=== PATIENT | female | born 1980 | race Caucasian/White ===

== ENCOUNTER 2019-07-28 05:46 | Emergency (ER) | payer OTHER, SELFPAY ==
--- NOTE | 2019-07-28 06:18 | EDPHYS ---
Physician Documentation [facility] Name: Navya Grant Age: 39 yrs Sex: Female : 1980 Arrival Date: 07/28/2019 Time: 05:48 Bed 5 Private MD: JORGE Physician Hal Hutson HPI: 07/27 06:05 This 39 yrs old Female presents to ER via Ambulatory with complaints of adolfo Nausea. 06:05 The patient presents to the emergency department with nausea, diarrhea, that is adolfo intermittent. Onset: The symptoms/episode began/occurred 2 day(s) ago. Possible causes: unknown. The symptoms are aggravated by nothing. The symptoms are alleviated by nothing. Associated signs and symptoms: The patient has no apparent associated signs or symptoms. Severity of symptoms: At their worst the symptoms were mild in the emergency department the symptoms are unchanged. The patient has not experienced similar symptoms in the past. 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 - Social history:: Smoking status: . - Family history:: not pertinent. ROS: 06:05 Constitutional: Negative for fever, chills, and weight loss, Eyes: Negative for injury, adolfo pain, redness, and discharge, ENT: Negative for injury, pain, and discharge, Neck: Negative for injury, pain, and swelling, Cardiovascular: Negative for chest pain, palpitations, and edema, Respiratory: Negative for shortness of breath, cough, wheezing, and pleuritic chest pain, Back: Negative for injury and pain, : Negative for injury, bleeding, discharge, and swelling, MS/Extremity: Negative for injury and deformity, Skin: Negative for injury, rash, and discoloration, Neuro: Negative for headache, weakness, numbness, tingling, and seizure, Psych: Negative for depression, anxiety, suicide ideation, homicidal ideation, and hallucinations, Allergy/Immunology: Negative for hives, rash, and allergies, Endocrine: Negative for neck swelling, polydipsia, polyuria, polyphagia, and marked weight changes, Hematologic/Lymphatic: Negative for swollen nodes, abnormal bleeding, and unusual bruising. 06:05 Abdomen/GI: Positive for nausea, diarrhea. Exam: 06:05 Constitutional: This is a well developed, well nourished patient who is awake, alert, adolfo and in no acute distress. Head/Face: Normocephalic, atraumatic. Eyes: Pupils equal round and reactive to light, extra-ocular motions intact. Lids and lashes normal. Conjunctiva and sclera are non-icteric and not injected. Cornea within normal limits. Periorbital areas with no swelling, redness, or edema. ENT: Nares patent. No nasal discharge, no septal abnormalities noted. Tympanic membranes are normal and external auditory canals are clear. Oropharynx with no redness, swelling, or masses, exudates, or evidence of obstruction, uvula midline. Mucous membranes moist. Neck: Trachea midline, no thyromegaly or masses palpated, and no cervical lymphadenopathy. Supple, full range of motion without nuchal rigidity, or vertebral point tenderness. No Meningismus. Chest/axilla: Normal chest wall appearance and motion. Nontender with no deformity. No lesions are appreciated. Cardiovascular: Regular rate and rhythm with a normal S1 and S2. No gallops, murmurs, or rubs. Normal PMI, no JVD. No pulse deficits. Respiratory: Lungs have equal breath sounds bilaterally, clear to auscultation and percussion. No rales, rhonchi or wheezes noted. No increased work of breathing, no retractions or nasal flaring. Back: No spinal tenderness. No costovertebral tenderness. Full range of motion. Skin: Warm, dry with normal turgor. Normal color with no rashes, no lesions, and no evidence of cellulitis. MS/ Extremity: Pulses equal, no cyanosis. Neurovascular intact. Full, normal range of motion. Neuro: Awake and alert, GCS 15, oriented to person, place, time, and situation. Cranial nerves II-XII grossly intact. Motor strength 5/5 in all extremities. Sensory grossly intact. Cerebellar exam normal. Normal gait. Psych: Awake, alert, with orientation to person, place and time. Behavior, mood, and affect are within normal limits. 06:05 Abdomen/GI: Inspection: abdomen appears normal, Bowel sounds: normal, Palpation: abdomen is soft and non-tender, Liver: no appreciated palpable abnormalities, Hernia: not appreciated. Vital Signs: 05:54 BP 113 / 73; Pulse 74; Resp 18; Temp 97.3; Pulse Ox 98% ; Weight 50.8 kg; Height 5 ft. ea 0 in. (152.40 cm); 06:30 BP 121 / 68; Pulse 70; Resp 18; Pulse Ox 98% on R/A; ea 05:54 Body Mass Index 21.87 (50.80 kg, 152.40 cm) ea MDM: 05:50 Patient medically screened. [facility] 06:11 Data reviewed: vital signs, nurses notes. [facility] 06:11 Differential diagnosis: Nonspecific abd pain, gastritis, viral gastroenteritis, adolfo gastroenteritis. 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 Counseling: I had a detailed discussion with the patient and/or guardian regarding: the historical points, exam findings, and any diagnostic results supporting the discharge/admit diagnosis, the need for outpatient follow up, for definitive care. Medication response: Zofran markedly relieved the patient's nausea. ED course: pt under stress, feeling better, nausea , no vomiting, mild diarrhea, non toxic, will dc home with zofran, no work x 24 hrs, follow up pcp, return to the er if symptoms increase or persist. Administered Medications: 06:15 Drug: Zofran (Ondansetron) 4 mg Route: PO; ea 07:05 Follow up: Response: No adverse reaction ea Disposition: 07/28/19 06:18 Discharged to Home. Impression: Nausea, Diarrhea, unspecified. - Condition is Stable. - Discharge Instructions: Food Choices to Help Relieve Diarrhea, Adult, Diarrhea, Adult, Nausea and Vomiting, Adult, Nausea, Adult, Diarrhea, Adult, [id number]. - Prescriptions for Zofran 4 mg Oral Tablet - take 1 tablet by ORAL route every 12 hours As needed; 14 tablet. - Work release form, Medication Reconciliation Form, Thank You Letter, Antibiotic Education, Prescription Opioid Use form. - Follow up: Private Physician; When: 5 - 6 days; Reason: Recheck today's complaints, Continuance of care, Re-evaluation by your physician. - Problem is new. - Symptoms have improved. Signatures: Dispatcher [employer] EDMS Baker, Spencer, RN Hal Todd MD MD cha Antunez, Elena, RN RN ea Corrections: (The following items were deleted from the chart) 06:12 06:00 IV Saline Lock ordered. reji mendoza : 05:59 Urine Dipstick-Ancillary ordered. reji mendoza 06:00 Labs collected and sent ordered. reji mendoza 07:05 06:18 07/28/2019 06:18 Discharged to Home. Impression: Nausea; Diarrhea, unspecified. ea Condition is Stable. Forms are Medication Reconciliation Form, Thank You Letter, Antibiotic Education, Prescription Opioid Use. Follow up: Private Physician; When: 5 - 6 days; Reason: Recheck today's complaints, Continuance of care, Re-evaluation by your physician. Problem is new. Symptoms have improved. adolfo
--- NOTE | 2019-07-28 06:18 | ER ---
Nurse's Notes [facility] Name: Navya Grant Age: 39 yrs Sex: Female : 1980 Arrival Date: 07/28/2019 Time: 05:48 Bed 5 Private MD: Diagnosis: Nausea;Diarrhea, unspecified Presentation: 07/27 05:55 Chief complaint: Patient states: Reports nausea that started this AM, states she had ea diarrhea yesterday afternoon. Pt reports lower abdominal pain. Coronavirus screen: Proceed with normal triage. Ebola Screen: No symptoms or risks identified at this time. Initial Sepsis Screen: Does the patient meet any 2 criteria? No. Patient's initial sepsis screen is negative. Does the patient have a suspected source of infection? No. Patient's initial sepsis screen is negative. Risk Assessment: Do you want to hurt yourself or someone else? Patient reports no desire to harm self or others. Onset of symptoms was July 28, 2019. 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 - Social history:: Smoking status: . - Family history:: not pertinent. Screenin:55 Abuse screen: Denies threats or abuse. Nutritional screening: No deficits noted. ea Tuberculosis screening: No symptoms or risk factors identified. Fall Risk None identified. Assessment: 05:57 General: Appears uncomfortable, Behavior is appropriate for age. Pain: Complains of ea pain in suprapubic area. Neuro: Level of Consciousness is awake, alert, obeys commands, Oriented to person, place, time, situation. Cardiovascular: Patient's skin is warm and dry. Respiratory: Airway is patent Respiratory effort is even, unlabored, Respiratory pattern is regular, symmetrical. GI: Abdomen is non-distended, Reports diarrhea, nausea. Derm: Skin is dry, Skin is normal, Skin temperature is warm. Vital Signs: 05:54 BP 113 / 73; Pulse 74; Resp 18; Temp 97.3; Pulse Ox 98% ; Weight 50.8 kg; Height 5 ft. ea 0 in. (152.40 cm); 06:30 BP 121 / 68; Pulse 70; Resp 18; Pulse Ox 98% on R/A; ea 05:54 Body Mass Index 21.87 (50.80 kg, 152.40 cm) reji ED Course: 05:48 Patient arrived in ED. ds1 05:49 Arm band placed on. landon 05:50 Hal Hutson MD is Attending Physician. adolfo 05:56 Triage completed. ea 05:57 Patient has correct armband on for positive identification. Bed in low position. Call ea light in reach. Side rails up X 1. 06:12 Anna Carney, RN is Primary Nurse. ea 07:04 No provider procedures requiring assistance completed. Patient did not have IV access ea during this emergency room visit. Administered Medications: 06:15 Drug: Zofran (Ondansetron) 4 mg Route: PO; ea 07:05 Follow up: Response: No adverse reaction ea Outcome: 06:18 Discharge ordered by . adolfo 07:04 Discharged to home ambulatory. ea 07:04 Condition: stable 07:04 Discharge instructions given to patient, Instructed on discharge instructions, follow up and referral plans. medication usage, Demonstrated understanding of instructions, follow-up care, medications, Prescriptions given X 1. 07:05 Patient left the ED. ea Signatures: Spencer Baker, RN Hal Todd MD MD cha Sanford, Demi ds1 Anna Carney RN RN ea
[2019-07-28] MEDS ORDERED: ONDANSETRON 4 MG (ODT) TAB ONE (06:22)
[2019-07-28 07:22] VITALS: TEMP 97.3; O2SAT 98
[2019-07-28 07:23] VITALS: BP 121/68
== END 2019-07-28 07:05 | disposition home or self-care (01) ==
LOC: ER 05:46
DX: R11.0 Nausea (principal); R19.7 Diarrhea, unspecified
CPT/HCPCS: 99283

== ENCOUNTER 2019-10-27 08:26 | Emergency (ER) | payer SELFPAY ==
[2019-10-27] MEDS ORDERED: NA CHLORIDE 0.9% 1,000 ML ONE (09:13)
[2019-10-27] MEDS ORDERED: FAMOTIDINE 20 MG/2 ML VIAL IV ONE (09:13)
[2019-10-27 09:40] LABS: Absolute Lymphocytes (CBC) 1.5 K/uL (0.7-4.9); Basophils % 0.9 % (0-1.3); Hematocrit 40.2 % (36.0-45.0); Lymphocytes % 32.8 % (15.3-44.8); MPV 9.4 fL (7.6-11.3); RBC Red Blood Cell Count 4.25 M/uL (3.86-4.86)
[2019-10-27 09:48] LABS: BUN Blood Urea Nitrogen 10 mg/dL (7-18); Bicarbonate 29 mmol/L (21-32); Glucose Level 85 mg/dL (74-106); Sodium Level 139 mmol/L (136-145)
--- NOTE | 2019-10-27 10:08 | EDPHYS ---
Physician Documentation [facility] Name: Navya Grant Age: 39 yrs Sex: Female : 1980 Arrival Date: 10/27/2019 Time: 08:28 Bed 17 Private MD: ED Physician Martín Colon HPI: 10/26 09:09 This 39 yrs old Female presents to ER via Ambulatory with complaints of kdr Dizziness, General Weakness, Fatigue. 09:09 The patient has been feeling generally weak and fatigued with some dizziness. She feels kdr she may be dehydrated. She states she has been under a lot of stress and that she has not been taking her anti-dyspepsia medications. She has no focal c/o and does not appear toxic or in any life or limb threatening circumstance at this time. symptoms/episode began/occurred gradually, last week. Severity of symptoms: At their worst the symptoms were mild in the emergency department the symptoms are unchanged. The patient has not experienced similar symptoms in the past. The patient has not recently seen a physician. 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 - Social history:: Smoking status: Patient denies any tobacco usage or history of. ROS: 09:09 Constitutional: Negative for fever, chills, and weight loss, Eyes: Negative for injury, kdr pain, redness, and discharge, Neck: Negative for injury, pain, and swelling, Cardiovascular: Negative for chest pain, palpitations, and edema, Respiratory: Negative for shortness of breath, cough, wheezing, and pleuritic chest pain, Abdomen/GI: Negative for abdominal pain, nausea, vomiting, diarrhea, and constipation, Back: Negative for injury and pain, : Negative for injury, bleeding, discharge, and swelling, MS/Extremity: Negative for injury and deformity, Skin: Negative for injury, rash, and discoloration, Psych: Negative for depression, anxiety, suicide ideation, homicidal ideation, and hallucinations, Allergy/Immunology: Negative for hives, rash, and allergies, Endocrine: Negative for neck swelling, polydipsia, polyuria, polyphagia, and marked weight changes, Hematologic/Lymphatic: Negative for swollen nodes, abnormal bleeding, and unusual bruising. :09 Neuro: Positive for dizziness, weakness. Exam: :09 Constitutional: This is a well developed, well nourished patient who is awake, alert, kdr and in no acute distress. Head/Face: Normocephalic, atraumatic. Eyes: Pupils equal round and reactive to light, extra-ocular motions intact. Lids and lashes normal. Conjunctiva and sclera are non-icteric and not injected. Cornea within normal limits. Periorbital areas with no swelling, redness, or edema. Neck: Trachea midline, no thyromegaly or masses palpated, and no cervical lymphadenopathy. Supple, full range of motion without nuchal rigidity, or vertebral point tenderness. No Meningismus. Chest/axilla: Normal chest wall appearance and motion. Nontender with no deformity. No lesions are appreciated. Cardiovascular: Regular rate and rhythm with a normal S1 and S2. No gallops, murmurs, or rubs. Normal PMI, no JVD. No pulse deficits. Respiratory: Lungs have equal breath sounds bilaterally, clear to auscultation and percussion. No rales, rhonchi or wheezes noted. No increased work of breathing, no retractions or nasal flaring. Abdomen/GI: Soft, non-tender, with normal bowel sounds. No distension or tympany. No guarding or rebound. No evidence of tenderness throughout. Back: No spinal tenderness. No costovertebral tenderness. Full range of motion. Skin: Warm, dry with normal turgor. Normal color with no rashes, no lesions, and no evidence of cellulitis. MS/ Extremity: Pulses equal, no cyanosis. Neurovascular intact. Full, normal range of motion. Neuro: Awake and alert, GCS 15, oriented to person, place, time, and situation. Cranial nerves II-XII grossly intact. Motor strength 5/5 in all extremities. Sensory grossly intact. Cerebellar exam normal. Normal gait. Psych: Awake, alert, with orientation to person, place and time. Behavior, mood, and affect are within normal limits. Appears fatigued and states she has been under a lot of stress Vital Signs: 08:36 BP 133 / 89; Pulse 97; Resp 16; Temp 98.3(TE); Pulse Ox 96% on R/A; Weight 50.8 kg; hb Height 5 ft. (152.40 cm); Pain 0/10; 09:27 BP 119 / 78; Pulse 59; Resp 17; Pulse Ox 100% ; bp 10:10 BP 102 / 76; Pulse 64; Resp 17; Pulse Ox 100% ; bp 08:36 Body Mass Index 21.87 (50.80 kg, 152.40 cm) hb MDM: 10:08 Patient medically screened. kdr 10:11 Data reviewed: vital signs, nurses notes, lab test result(s). Counseling: I had a kdr detailed discussion with the patient and/or guardian regarding: the historical points, exam findings, and any diagnostic results supporting the discharge/admit diagnosis, lab results, the need for outpatient follow up. 10/26 09:01 Order name: CBC with Diff; Complete Time: 10:05 kdr 10/26 09: Order name: Chem 7; Complete Time: 10:05 kdr Administered Medications: 09:25 Drug: NS 0.9% 1000 ml Route: IV; Rate: 1 bolus; Site: right antecubital; bp 10:11 Follow up: IV Status: Completed infusion; IV Intake: 1000ml bp 09:25 Drug: Pepcid 20 mg Route: IVP; Site: right antecubital; bp 10:11 Follow up: Response: No adverse reaction bp Disposition: 10/27/19 10:08 Discharged to Home. Impression: Acute Fatigue, weakness, stress reaction, dyspepsia, gastritis. - Condition is Stable. - Discharge Instructions: Fatigue, Gastroesophageal Reflux Disease, Adult, Vtsu-ga-Buza, Weakness, [id number], Food Choices for Gastroesophageal Reflux Disease, Adult, [id number]. - Prescriptions for Protonix 40 mg Oral Tablet - take 1 tablet by ORAL route once daily; 30 tablet. - Medication Reconciliation Form, Thank You Letter, Work release form form. - Follow up: Private Physician; When: 2 - 3 days; Reason: If symptoms return, Further diagnostic work-up, Recheck today's complaints, Continuance of care, Re-evaluation by your physician. - Problem is new. - Symptoms have improved. Signatures: Dispatcher [employer] EDMartín Pollard MD MD kdr Jihan Parisi RN RN hb Homar Ruiz, RN RN bp Corrections: (The following items were deleted from the chart) 10:22 10:08 10/27/2019 10:08 Discharged to Home. Impression: Acute Fatigue, weakness, stress bp reaction, dyspepsia, gastritis. Condition is Stable. Forms are Medication Reconciliation Form, Thank You Letter, Antibiotic Education, Prescription Opioid Use. Follow up: Private Physician; When: 2 - 3 days; Reason: If symptoms return, Further diagnostic work-up, Recheck today's complaints, Continuance of care, Re-evaluation by your physician. Problem is new. Symptoms have improved. kdr
--- NOTE | 2019-10-27 10:08 | ER ---
Nurse's Notes [facility] Name: Navya Grant Age: 39 yrs Sex: Female : 1980 Arrival Date: 10/27/2019 Time: 08:28 Bed 17 Private MD: Diagnosis: Acute Fatigue, weakness, stress reaction, dyspepsia, gastritis Presentation: 10/26 08:36 Chief complaint: Upper abdominal pain, nausea, generalized weakness, dry throat/mouth, hb and malaise x 2-3 days. Reports she is "under a lot of stress lately, I am so tired I can't sleep.". Coronavirus screen: At this time, the client does not indicate any symptoms associated with coronavirus-19. Ebola Screen: No symptoms or risks identified at this time. Initial Sepsis Screen: Does the patient meet any 2 criteria? No. Patient's initial sepsis screen is negative. Does the patient have a suspected source of infection? No. Patient's initial sepsis screen is negative. Risk Assessment: Do you want to hurt yourself or someone else? Patient reports no desire to harm self or others. Onset of symptoms was October 25, 2019. 08:36 Method Of Arrival: Ambulatory hb 08:36 Acuity: ADALGISA 3 hb Triage Assessment: 08:42 General: Appears in no apparent distress. uncomfortable, Behavior is cooperative, bp appropriate for age, anxious. Pain: Complains of pain in abdomen. EENT: No deficits noted. Neuro: Reports dizziness. Cardiovascular: No deficits noted. Respiratory: No deficits noted. GI: Reports upper abdominal pain. : No signs and/or symptoms were reported regarding the genitourinary system. Derm: No deficits noted. Musculoskeletal: No deficits noted. 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 - Social history:: Smoking status: Patient denies any tobacco usage or history of. Screenin:42 Abuse screen: Denies threats or abuse. Denies injuries from another. Nutritional bp screening: No deficits noted. Tuberculosis screening: No symptoms or risk factors identified. Fall Risk None identified. Assessment: 08:42 General: SEE TRIAGE NOTE. bp 09:27 Reassessment: IVF INFUSING, VS STABLE ON MONITOR. bp 10:00 Reassessment: PT AMBULATING WITH STEADY GAIT TO BATHROOM. IVF COMPLETED. bp 10:11 Reassessment: PT D/C HOME AMBULATORY, DX WITH ACUTE STRESS REACTION AND FATIGUE. bp Vital Signs: 08:36 BP 133 / 89; Pulse 97; Resp 16; Temp 98.3(TE); Pulse Ox 96% on R/A; Weight 50.8 kg; hb Height 5 ft. (152.40 cm); Pain 0/10; 09:27 BP 119 / 78; Pulse 59; Resp 17; Pulse Ox 100% ; bp 10:10 BP 102 / 76; Pulse 64; Resp 17; Pulse Ox 100% ; bp 08:36 Body Mass Index 21.87 (50.80 kg, 152.40 cm) hb ED Course: 08:28 Patient arrived in ED. ds1 08:34 Homar Ruiz, KIRK is Primary Nurse. bp 08:36 Martín Colon MD is Attending Physician. kdr 08:38 Triage completed. hb 08:39 Arm band placed on. hb 08:42 Patient has correct armband on for positive identification. Bed in low position. Call bp light in reach. Side rails up X2. 09:25 Inserted saline lock: 20 gauge in right antecubital area, using aseptic technique. bp Blood collected. 10:11 No provider procedures requiring assistance completed. IV discontinued, intact, bp bleeding controlled, No redness/swelling at site. Pressure dressing applied. Administered Medications: 09:25 Drug: NS 0.9% 1000 ml Route: IV; Rate: 1 bolus; Site: right antecubital; bp 10:11 Follow up: IV Status: Completed infusion; IV Intake: 1000ml bp 09:25 Drug: Pepcid 20 mg Route: IVP; Site: right antecubital; bp 10:11 Follow up: Response: No adverse reaction bp Intake: 10:11 IV: 1000ml; Total: 1000ml. bp Outcome: 10:08 Discharge ordered by . kdr 10:11 Discharged to home ambulatory. bp 10:11 Condition: stable 10:11 Discharge instructions given to patient, Instructed on discharge instructions, follow up and referral plans. medication usage, Demonstrated understanding of instructions, follow-up care, medications, Prescriptions given X 1. 10:22 Patient left the ED. bp Signatures: Martín Colon MD MD [facility] Cristina Patel ds1 Jihan Pairsi, KIRK RN Homar Ruiz RN RN bp Corrections: (The following items were deleted from the chart) 10:12 10:11 Discharge instructions given to patient, Instructed on discharge instructions, bp follow up and referral plans. Demonstrated understanding of instructions, follow-up care, bp
[2019-10-29 05:41] VITALS: TEMP 98.3
[2019-10-29 05:42] VITALS: O2SAT 100
[2019-10-29 05:43] VITALS: BP 102/76
== END 2019-10-27 10:22 | disposition home or self-care (01) ==
LOC: ER 08:26
DX: R53.1 Weakness (principal); F43.0 Acute stress reaction; K29.70 Gastritis, unspecified, without bleeding; R10.13 Epigastric pain; Z88.2 Allergy status to sulfonamides
CPT/HCPCS: 36415; 80048; 85025; 96361; 96374; 99284; J7030

== ENCOUNTER 2019-12-08 14:32 | Emergency (ER) | payer SELFPAY ==
--- NOTE | 2019-12-08 15:42 | RAD REPORT ---
EXAM DESCRIPTION: RAD - Hand Right 3 View - 12/08/2019 3:32 pm CLINICAL HISTORY: PAIN, trauma COMPARISON: No comparisonsNone. FINDINGS: No fracture is identified. There is no dislocation or periosteal reaction noted. No forei gn body or significant soft tissue abnormality. IMPRESSION: Negative right hand examination.
--- NOTE | 2019-12-08 15:44 | ER ---
Nurse's Notes [facility] Name: Navya Grant Age: 39 yrs Sex: Female : 1980 Arrival Date: 12/08/2019 Time: 14:35 Bed 16 Private MD: Diagnosis: Contusion of right hand Presentation: 12/07 14:54 Chief complaint: Slammed hand down onto keyboard last night in anger, today c/o right hb hand pain 11/02. Coronavirus screen: At this time, the client does not indicate any symptoms associated with coronavirus-19. Ebola Screen: No symptoms or risks identified at this time. Initial Sepsis Screen: Does the patient meet any 2 criteria? No. Patient's initial sepsis screen is negative. Does the patient have a suspected source of infection? No. Patient's initial sepsis screen is negative. Risk Assessment: Do you want to hurt yourself or someone else? Patient reports no desire to harm self or others. Onset of symptoms was December 07, 2019. 14:54 Method Of Arrival: Ambulatory hb 14:54 Acuity: ADALGISA 4 hb Triage Assessment: 14:56 General: Appears in no apparent distress. Behavior is calm, cooperative. Pain: Pain hb currently is 9 out of 10 on a pain scale. EENT: No signs and/or symptoms were reported regarding the EENT system. Neuro: Level of Consciousness is awake, alert, obeys commands, Oriented to person, place, time, situation. Cardiovascular: Capillary refill < 3 seconds Patient's skin is warm and dry. Respiratory: Respiratory effort is even, unlabored, Respiratory pattern is regular, symmetrical. GI: No signs and/or symptoms were reported involving the gastrointestinal system. : No signs and/or symptoms were reported regarding the genitourinary system. Derm: Skin is pink, warm \T\ dry. Musculoskeletal: Reports right hand pain. 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 - Social history:: Smoking status: Patient denies any tobacco usage or history of. Screenin:57 Abuse screen: Denies threats or abuse. Denies injuries from another. Nutritional hb screening: No deficits noted. Tuberculosis screening: No symptoms or risk factors identified. Fall Risk None identified. Assessment: 14:57 General: see triage assessment. hb 15:15 Reassessment: Patient appears in no apparent distress at this time. Awaiting radiology hb at this time. 15:28 Reassessment: radiology at bedside. hb Vital Signs: 14:54 BP 117 / 74; Pulse 89; Resp 16; Temp 97.8(TE); Pulse Ox 100% on R/A; Weight 52.16 kg; hb Height 5 ft. (152.40 cm); Pain 9/10; 14:54 Body Mass Index 22.46 (52.16 kg, 152.40 cm) hb ED Course: 14:35 Patient arrived in ED. ds1 14:48 Taryn Navas FNP-C is [facility]. kb 14:48 Martín Colon MD is Attending Physician. kb 14:54 Jihan Parisi, RN is Primary Nurse. hb 14:55 Triage completed. hb 14:57 Arm band placed on. hb 14:57 Patient has correct armband on for positive identification. Bed in low position. Call hb light in reach. 15:32 Hand Right 3 View XRAY In Process Unspecified. EDMS 15:59 No provider procedures requiring assistance completed. Patient did not have IV access hb during this emergency room visit. Administered Medications: 15:58 Drug: [place] (7.5 mg-325 mg) 1 tabs Route: PO; hb 15:58 Follow up: Response: Medication administered at discharge. hb Outcome: 15:43 Discharge ordered by . kb 15:59 Discharged to home ambulatory. hb 15:59 Condition: stable 15:59 Discharge instructions given to patient, Instructed on discharge instructions, follow up and referral plans. medication usage, Demonstrated understanding of instructions, follow-up care, medications. 15:59 Patient left the ED. hb Signatures: Dispatcher [employer] EDMS Taryn Navas FNP-C FNP-Ckb Sanford, Demi ds1 Jihan Parisi RN RN hb
--- NOTE | 2019-12-08 15:45 | EDPHYS ---
Physician Documentation [facility] Name: Navya Grant Age: 39 yrs Sex: Female : 1980 Arrival Date: 12/08/2019 Time: 14:35 Bed 16 Private MD: ED Physician Martín Colon HPI: 12/07 15:30 This 39 yrs old Female presents to ER via Ambulatory with complaints of Hand kb Injury. 15:30 The patient or guardian reports injury, pain, swelling, tenderness. The complaints kb affect the medial aspect of right hand. Context: The problem was sustained at home, resulted from hitting computer desk with side of hand. Onset: The symptoms/episode began/occurred last night. Modifying factors: The symptoms are alleviated by nothing, the symptoms are aggravated by nothing. Associated signs and symptoms: The patient has no apparent associated signs or symptoms. Severity of symptoms: At their worst the symptoms were mild, moderate, in the emergency department the symptoms are unchanged. The patient has not experienced similar symptoms in the past. The patient has not recently seen a physician. 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 - Social history:: Smoking status: Patient denies any tobacco usage or history of. ROS: 15:29 Constitutional: Negative for fever, chills, and weight loss, Cardiovascular: Negative kb for chest pain, palpitations, and edema, Respiratory: Negative for shortness of breath, cough, wheezing, and pleuritic chest pain, Abdomen/GI: Negative for abdominal pain, nausea, vomiting, diarrhea, and constipation, Back: Negative for injury and pain, Skin: Negative for injury, rash, and discoloration, Neuro: Negative for headache, weakness, numbness, tingling, and seizure. 15:29 MS/extremity: Positive for pain, swelling, tenderness, of the medial aspect of right hand. Exam: 15:30 Constitutional: This is a well developed, well nourished patient who is awake, alert, kb and in no acute distress. Head/Face: Normocephalic, atraumatic. Chest/axilla: Normal chest wall appearance and motion. Nontender with no deformity. No lesions are appreciated. Cardiovascular: Regular rate and rhythm with a normal S1 and S2. No gallops, murmurs, or rubs. Normal PMI, no JVD. No pulse deficits. Respiratory: Lungs have equal breath sounds bilaterally, clear to auscultation and percussion. No rales, rhonchi or wheezes noted. No increased work of breathing, no retractions or nasal flaring. Abdomen/GI: Soft, non-tender, with normal bowel sounds. No distension or tympany. No guarding or rebound. No evidence of tenderness throughout. Skin: Warm, dry with normal turgor. Normal color with no rashes, no lesions, and no evidence of cellulitis. Neuro: Awake and alert, GCS 15, oriented to person, place, time, and situation. Cranial nerves II-XII grossly intact. Motor strength 5/5 in all extremities. Sensory grossly intact. Cerebellar exam normal. Normal gait. 15:30 Musculoskeletal/extremity: Extremities: grossly normal except: noted in the medial aspect of right hand: pain, swelling, tenderness, ROM: intact in all extremities, Circulation is intact in all extremities. Sensation intact. Vital Signs: 14:54 BP 117 / 74; Pulse 89; Resp 16; Temp 97.8(TE); Pulse Ox 100% on R/A; Weight 52.16 kg; hb Height 5 ft. (152.40 cm); Pain 9/10; 14:54 Body Mass Index 22.46 (52.16 kg, 152.40 cm) hb MDM: 14:49 Patient medically screened. kb 15:29 Data reviewed: vital signs, nurses notes. Data interpreted: Pulse oximetry: on room air kb is 100 %. Interpretation: normal. Counseling: I had a detailed discussion with the patient and/or guardian regarding: the historical points, exam findings, and any diagnostic results supporting the discharge/admit diagnosis, radiology results, the need for outpatient follow up, a family practitioner, to return to the emergency department if symptoms worsen or persist or if there are any questions or concerns that arise at home. 12/07 14:53 Order name: Hand Right 3 View XRAY; Complete Time: 15:47 kb Administered Medications: 15:58 Drug: [place] (7.5 mg-325 mg) 1 tabs Route: PO; hb 15:58 Follow up: Response: Medication administered at discharge. hb Disposition: 18:52 Co-signature as Attending Physician, Martín Colon MD I agree with the assessment and kdr plan of care. Disposition: 12/08/19 15:43 Discharged to Home. Impression: Contusion of right hand. - Condition is Stable. - Discharge Instructions: Hand Contusion, [id number]. - Medication Reconciliation Form, Thank You Letter, Antibiotic Education, Prescription Opioid Use form. - Follow up: Emergency Department; When: As needed; Reason: Worsening of condition. Follow up: Private Physician; When: 2 - 3 days; Reason: Recheck today's complaints, Continuance of care, Re-evaluation by your physician. Signatures: Dispatcher [employer] EDMS Taryn Navas, MOVIE THEATER USHER-C MOVIE THEATER USHER-Martín Nguyen MD MD [facility] Jihan Parisi RN RN Corrections: (The following items were deleted from the chart) 15:59 15:43 12/08/2019 15:43 Discharged to Home. Impression: Contusion of right hand. hb Condition is Stable. Forms are Medication Reconciliation Form, Thank You Letter, Antibiotic Education, Prescription Opioid Use. Follow up: Emergency Department; When: As needed; Reason: Worsening of condition. Follow up: Private Physician; When: 2 - 3 days; Reason: Recheck today's complaints, Continuance of care, Re-evaluation by your physician. kb
[2019-12-08] MEDS ORDERED: HYDROCODONE/APAP 7.5/325 MG TAB ONE (16:04)
[2019-12-08 16:48] VITALS: BP 117/74; TEMP 97.8; O2SAT 100
== END 2019-12-08 15:59 | disposition home or self-care (01) ==
LOC: ER 14:32
DX: S60.221A Contusion of right hand, initial encounter (principal); W22.8XXA Striking against or struck by other objects, initial encounter; Y93.89 Activity, other specified; Y92.009 Unspecified place in unspecified non-institutional (private) residence as the place of occurrence of the external cause; Z88.2 Allergy status to sulfonamides; F31.9 Bipolar disorder, unspecified
CPT/HCPCS: 99283

== ENCOUNTER 2020-09-09 14:31 | Emergency (ER) | payer SELFPAY ==
--- NOTE | 2020-09-09 15:31 | ER ---
Nurse's Notes [facility] Name: Navya Grant Age: 40 yrs Sex: Female : 1980 Arrival Date: 09/09/2020 Time: 14:37 Bed 20 Private MD: Diagnosis: Unspecified hemorrhoids Presentation: 09/09 14:44 Chief complaint: Patient states: Rectal bleeding and pain after rough sex 5 days ago. ll1 Coronavirus screen: Client denies travel out of the [place] in the last 14 days. At this time, the client does not indicate any symptoms associated with coronavirus-19. Ebola Screen: Patient denies travel to an Ebola-affected area in the 21 days before illness onset. Initial Sepsis Screen: Does the patient meet any 2 criteria? No. Patient's initial sepsis screen is negative. Does the patient have a suspected source of infection? Yes: Other: rectal pain. Risk Assessment: Do you want to hurt yourself or someone else? Patient reports no desire to harm self or others. Onset of symptoms was September 05, 2020. 14:44 Method Of Arrival: Ambulatory [facility] 14:44 Acuity: ADALGISA 4 ll1 Historical: - Allergies: 14:46 Sulfa (Sulfonamide Antibiotics); ll1 - PMHx: 14:46 Anxiety; Bipolar disorder; ll1 - PSHx: 14:46 None; ll1 - Immunization history:: Flu vaccine is not up to date. - Social history:: Smoking status: Patient denies any tobacco usage or history of. - Family history:: not pertinent. - Hospitalizations: : No recent hospitalization is reported. Screenin:25 Abuse screen: Denies threats or abuse. Denies injuries from another. Nutritional ss screening: No deficits noted. Tuberculosis screening: Never had TB. Fall Risk None identified. Assessment: 15:25 General: Appears in no apparent distress. comfortable, Behavior is calm, cooperative, ss Denies fever, feeling ill. Neuro: Level of Consciousness is awake, alert, obeys commands, Oriented to person, place, time, situation. Cardiovascular: Capillary refill < 3 seconds is brisk in bilateral fingers Patient's skin is warm and dry. Respiratory: Airway is patent Respiratory effort is even, unlabored, Respiratory pattern is regular, symmetrical. GI: Reports bleeding area on side of rectum. Pt reports that bleeding began 5 days ago after her and partner were having digital rectal intercourse. Bleeding is reported to be episodic. Patient currently denies nausea, vomiting. GI: Rectal exam: No active bleeding noted at this time. : No signs and/or symptoms were reported regarding the genitourinary system. Genitalia appear normal. EENT: Throat is clear. Derm: Skin is intact, is healthy with good turgor, Skin is pink, warm \T\ dry. normal. Musculoskeletal: Circulation, motion, and sensation intact. Range of motion: intact in all extremities, Swelling absent. Vital Signs: 14:44 BP 124 / 86; Pulse 75; Resp 17; Temp 98.6; Pulse Ox 100% ; Weight 51.71 kg; Height 5 ll1 ft. 0 in. (152.40 cm); Pain 5/10; 14:44 Body Mass Index 22.26 (51.71 kg, 152.40 cm) ll1 ED Course: 14:37 Patient arrived in ED. mr 14:46 Triage completed. ll1 14:47 Arm band placed on. 1 15:12 Carlos Naranjo MD is Attending Physician. rn 15:25 Rosibel Warren, KIRK is Primary Nurse. ss 15:25 Patient has correct armband on for positive identification. Placed in gown. Bed in low ss position. Call light in reach. 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 Patient did not have IV access during this emergency room visit. 15:31 Stanford Newberry MD is Referral Physician. rn Administered Medications: No medications were administered Outcome: 15:30 Discharged to home ambulatory. 15:30 Condition: good 15:30 Discharge instructions given to patient, Instructed on discharge instructions, follow up and referral plans. medication usage, Demonstrated understanding of instructions, follow-up care. 15:31 Discharge ordered by . rn 15:37 Patient left the ED. Signatures: Keisha Stack mr Carlos Naranjo MD MD rn Smirch, Shelby, RN RN Aggie Harding RN RN ll1 Corrections: (The following items were deleted from the chart) 14:47 14:44 Chief complaint: Patient states: Rectal bleeding and pain after rough sex 4 days ll1 ago. ll1
--- NOTE | 2020-09-09 15:32 | EDPHYS ---
Physician Documentation [facility] Name: Navya Grant Age: 40 yrs Sex: Female : 1980 Arrival Date: 09/09/2020 Time: 14:37 Bed 20 Private MD: ED Physician Carlos Naranjo HPI: 09/09 15:25 This 40 yrs old Female presents to ER via Ambulatory with complaints of rn Rectal Bleeding. 15:25 The patient presents to the emergency department with bleeding from the rectum/anus, rn that is mild. Onset: The symptoms/episode began/occurred 5 day(s) ago. Context: the patient has had anal intercourse. Modifying factors: The symptoms are alleviated by gauze and time The symptoms are aggravated by bowel movement, sitting position. Associate signs and symptoms: Pertinent negatives: abdominal pain, fever, rectal pain. The patient has not experienced similar symptoms in the past. The patient has not recently seen a physician. Reports rough anal penetration a few days ago, was finger, + long nails, thinks might have a cut, has noticed intermittent bleeding since penetration. Not on blood thinners, no rectal or abd pain. NO vaginal bleeding or issues.. Historical: - Allergies: 14:46 Sulfa (Sulfonamide Antibiotics); ll1 - PMHx: 14:46 Anxiety; Bipolar disorder; ll1 - PSHx: 14:46 None; ll1 - Immunization history:: Flu vaccine is not up to date. - Social history:: Smoking status: Patient denies any tobacco usage or history of. - Family history:: not pertinent. - Hospitalizations: : No recent hospitalization is reported. ROS: 15:25 Constitutional: Negative for fever, chills, and weight loss, Abdomen/GI: Negative for rn abdominal pain, nausea, vomiting, diarrhea, and constipation, + anal bleeding Exam: 15:25 Constitutional: This is a well developed, well nourished patient who is awake, alert, rn and in no acute distress. Ambulatory to room without difficulty or assistance. Abdomen/GI: Soft, non-tender. Anal exam shows 2 hemorrhoids, no active bleeding, + very superficial skin tear of one of the hemorrhoids. No abscess. Vital Signs: 14:44 BP 124 / 86; Pulse 75; Resp 17; Temp 98.6; Pulse Ox 100% ; Weight 51.71 kg; Height 5 ll1 ft. 0 in. (152.40 cm); Pain 5/10; 14:44 Body Mass Index 22.26 (51.71 kg, 152.40 cm) ll1 MDM: 15:12 Patient medically screened. rn 15:25 Differential diagnosis: hemorrhoids, fissure, laceration. Data reviewed: vital signs, rn nurses notes, and as a result, I will discharge patient. Counseling: I had a detailed discussion with the patient and/or guardian regarding: the historical points, exam findings, and any diagnostic results supporting the discharge/admit diagnosis, the need for outpatient follow up, to return to the emergency department if symptoms worsen or persist or if there are any questions or concerns that arise at home. Special discussion: I discussed with the patient/guardian in detail that at this point there is no indication for admission to the hospital. It is understood, however, that if the symptoms persist or worsen the patient needs to return immediately for re-evaluation. ED course: NO active bleeding, seems to be small superficial injury to one of her external hemorrhoids, will dc home with conservative treatment, sitz baths, hemorrhoid cream, and return precautions. . Administered Medications: No medications were administered Disposition Summary: 09/09/20 15:31 Discharge Ordered Location: Home rn Problem: new rn Symptoms: have improved rn Condition: Stable rn Diagnosis - Unspecified hemorrhoids rn Followup: rn - With: Stanford Newberry MD - When: As needed - Reason: Recheck today's complaints, Re-evaluation by your physician Discharge Instructions: - Discharge Summary Sheet rn - Hemorrhoids rn - Surgical Procedures for Hemorrhoids rn - Nonsurgical Procedures for Hemorrhoids, Care After rn Forms: - Medication Reconciliation Form rn - Thank You Letter rn - Antibiotic glove turner - Prescription Opioid Use rn Signatures: Carlos Naranjo MD MD rn Lewis, Lynsay, RN RN ll1
[2020-09-09 15:55] VITALS: BP 124/86; TEMP 98.6; O2SAT 100
== END 2020-09-09 15:37 | disposition home or self-care (01) ==
LOC: ER 14:31
DX: K64.9 Unspecified hemorrhoids (principal); Z88.2 Allergy status to sulfonamides
CPT/HCPCS: 99283